=== PATIENT | male | born 1970 | race Caucasian/White ===

== ENCOUNTER 2018-05-25 06:28 | Day surgery (SDC) | payer OTHER ==
[~2018-05-25] VITALS: Ht 175.3 cm; Wt 72.1 kg
[2018-05-25] VITALS (7 sets, daily range): BP systolic 113–132; BP diastolic 70–90; PULSE 63–88; TEMP 98.5
[2018-05-25] MEDS ORDERED: SYNTHROID0.1 MG/TAB PO (07:13)
--- NOTE | 2018-05-25 07:14 | NUR ---
TO RM AT 0640- CALL LIGHT IN REACH AT BEDSIDE
--- NOTE | 2018-05-25 09:35 | NUR ---
TO RM 7 PER CART FROM PACU. ALERT ORIENTED X3, TALKING TO AND STAFF. C/O PAIN 06/11. DENIES N/V. INCISIONS CLEAN DRY INTACT COVERED WITH KEMP SET. EATING ICE CHIPS.
[2018-05-25] MEDS ORDERED: NORCO 325 MG-51 TAB PO (09:42)
--- NOTE | 2018-05-25 09:50 | NUR ---
RECEIVED MUFFIN AND SPRITE. PATIENT ABLE TO PUSH SELF UP TO SITTING POSITION TO EAT.
--- NOTE | 2018-05-25 10:05 | NUR ---
ATE 100% AND TOLERATED WELL. SITTING UP AND TALKING TO MOTHER AND .
--- NOTE | 2018-05-25 10:22 | NUR ---
DRINKING WATER. PATIENT STATED PAIN IS DULL AND DENIES NEED FOR PAIN MEDS. 02 SAT 93%-96% ON ROOM AIR, JUST NEEDS A REMINDER TO TAKE DEEP BREATHS.
--- NOTE | 2018-05-25 10:50 | NUR ---
UP AMBULATED TO BATHROOM. UNABLE TO VOID AT THIS TIME. TALKED WITH DR RACHEL STEVENS TO DISCHARGE WITHOUT VOIDING.
--- NOTE | 2018-05-25 11:00 | NUR ---
RECEIVED DISCHARGE INSTRUCTIONS AND VERBALIZED UNDERSTANDING. DISCONTINUED IV AND INT- CATHETER INTACT.
--- NOTE | 2018-05-25 11:10 | NUR ---
DISCHARGED PER WC BY NURSING STAFF TO PRIVATE CAR IN CARE OF HIS - JILLIAN.
== END 2018-05-25 11:11 | disposition home or self-care (01) ==
LOC: SDCO 06:28
DX: K40.90 Unilateral inguinal hernia, without obstruction or gangrene, not specified as recurrent (principal); E03.9 Hypothyroidism, unspecified; Z80.0 Family history of malignant neoplasm of digestive organs; Z80.9 Family history of malignant neoplasm, unspecified; Z79.899 Other long term (current) drug therapy
CPT/HCPCS: C1781; J0690; J1100; J1170; J1885; J2250; J2405; J2704; J2710; J3010; J7120